=== PATIENT | female | born 1935 | race Caucasian/White ===

== ENCOUNTER 2017-02-08 13:19 | Emergency (ER) | payer OTHER, MEDICARE ==
[~2017-02-08] VITALS: Ht 160 cm; Wt 63.5 kg
[~2017-02-08 13:19] MED LIST: ALEVE220 M1 PO; AMITRIPTYLINE H10 M1 PO; AMLODIPINE BESYL5 MG PO; ATIVAN0.5 MG PO; AVAPRO300 MG PO; CLARITIN10 MG PO; COREG25 MG PO; CYMBALTA30 MG PO; GABAPENTIN 100100 MG PO; GYNODIOL0.5 MG PO; HYDROCODON-ACE1 EAC5 PO; HYDROCODON-ACE1 EAC7 PO; HYDROCODONE-AP1 EAC6 PO; LANSOPRAZOLE30 MG PO; LIDOCREAM5 GM TP; LIDODERM 5%1 PATC1 TOP; LOTEMAX3.5 GM OP; MICARDIS40 MG PO; MOBIC15 MG PO; NORCO 5-325 TA1 EACH; NORCO 5-325 TA1 EACH PO; OXYBUTYNIN 5 MG5 M2 PO; OXYCODONE-ACET1 EAC2 PO; OXYCONTIN10 M1 PO; OXYCONTIN10 MG PO; PEPCID20 MG PO; PRAVACHOL40 MG PO; PREMARIN0.3 MG PO; PREMARIN0.625 MG PO; RITALIN5 MG PO; SYNTHROID25 MCG PO; TRAMADOL 50 MG50 MG PO; ULTRAM 50MG TAB50 MG PO; VESICARE 5 MG TA5 MG PO; VITAMIN D-32000 UNIT PO; VOLTAREN GEL 1100 G2 TOP; ZIAC 10-6.25 M1 EACH; ZIAC 10/6.25 MG10 M1 PO; ZIAC 5-6.25 MG1 EACH PO
[2017-02-08] MEDS ORDERED: VITAMIN D1000 UNI1 PO (13:27)
[2017-02-08] MEDS ORDERED: LASIX 40 MG TAB40 M2 PO (13:28)
[2017-02-08] MEDS ORDERED: LIDODERM 5%1 PATC1 TRANSDERM (13:28)
[2017-02-08] MEDS ORDERED: METHYLPHENIDATE10 M1 PO (13:30)
[2017-02-08] MEDS ORDERED: NORVASC2.5 MG PO (13:31)
[2017-02-08] MEDS ORDERED: NORCO 10-325 T1 EACH PO ×2 (13:31→14:42)
[2017-02-08] MEDS ORDERED: KLOR-CON 1010 MEQ PO (13:34)
== END 2017-02-08 15:17 | disposition home or self-care (01) ==
LOC: ER 13:19
DX: M54.89 Other dorsalgia (principal); Z90.710 Acquired absence of both cervix and uterus; Z98.890 Other specified postprocedural states; Z98.62 Peripheral vascular angioplasty status; Z96.651 Presence of right artificial knee joint; Z88.0 Allergy status to penicillin; Z88.8 Allergy status to other drugs, medicaments and biological substances

== ENCOUNTER 2017-02-09 15:41 | Inpatient (IN) | payer OTHER, MEDICARE ==
[~2017-02-09] VITALS: Ht 160 cm; Wt 63.5 kg
--- NOTE | ~2017-02-09 | EKG ---
[place] [address] 2,10E+07[facility] [place] [address] ELECTROCARDIOGRAM REPORT Name: HODAN WHEATN Room #: 408-P ADM IN M.R.#: [id number] Admission: 02/09/17 Attend Phys: Wenceslao Aquino MD Discharge: Date of : 31 Report #: [id number] THIS REPORT FOR: //name// [facility] ED Test Date: 2017-02-09 Test Time: 19:02:16 Pat Name: RENITA WHEAT Department: Room: 408 Gender: F Php Engineer: [id number] : 1935 Requested By: Donnell Daniels Order Number: [id number] MD: Casimiro Vasquez Measurements Intervals [place] Rate: 64 P: 72 CA: 168 QRS: 23 QRSD: 142 T: 16 QT: 416 QTc: 430 Interpretive Statements Sinus rhythm Atrial premature complex Right bundle branch block No previous ECG available for comparison Electronically Signed On 02-10-2017 8:49:34 CDT by Casimiro Vasquez [email or web address] <ELECTRONICALLY SIGNED> By: Casimiro Vasquez MD, [facility] 02/10/17 0849 [id number] 01 Casimiro Vasquez MD, FACC /EPI
--- NOTE | ~2017-02-09 | HPC ---
[facility] [place] [address] PAIN MANAGEMENT CONSULTATION Name: RENITA WHEAT Room #: 408-P [facility] IN M.R.#: [id number] Admission: 02/09/17 Attend Phys: Wenceslao Aquino MD Discharge: Date of : 31 Report #: [id number] THIS REPORT FOR: //name// CC: Wenceslao Aquino CHIEF COMPLAINT: Pain in the neck and head after a fall. The patient states that she was putting up a clock. This is one that her had made. As she lifted it, a portion of it fell off. The clock struck her in the face. She fell and has been experiencing headache pain. She also has pain and discomfort along the left side. She has continued to have some headache pain today. She has hydrocodone as an option. She has not asked for this medication today. PHYSICAL EXAMINATION: She is lying in bed. She is holding her head. She complains of pain and discomfort in the occipital area and a generalized headache. MEDICATIONS: OxyContin 10 mg p.o. b.i.d., Coreg 25 mg b.i.d., Pepcid 20 mg b.i.d., oxybutynin 5 mg, tramadol 50 mg p.r.n. for headaches, multivitamins, Lasix 40 mg daily, amlodipine 2.5 mg daily, potassium 10 mEq, levothyroxine 25 mcg, Pravachol 40 mg, Voltaren gel topical t.i.d. IMPRESSION: Chronic headache, status post fall with trauma to the left facial area. RECOMMENDATIONS: We will have the patient given tramadol 15 mg 1 p.o. t.i.d. We will also start Celebrex 200 mg 1 p.o. every day, after termination of the tramadol. We will see her again tomorrow. We would like to thank you for letting us participate in her care. We hope she continues to improve. By: [id number] Maira Fonseca MD /nt
--- NOTE | ~2017-02-09 | H ---
[facility] [place] [address] HISTORY AND PHYSICAL Name: RENITA WHEAT Room #: 408-P ADM IN M.R.#: [id number] Admission: 02/09/17 Attend Phys: Wenceslao Aquino MD Discharge: Date of : 33 Report #: [id number] THIS REPORT FOR: //name// CC: Wenceslao Aquino DATE OF SERVICE: 02/09/2017 CHIEF COMPLAINT: Severe headaches and neck pain and hypertensive urgency. HISTORY OF PRESENT ILLNESS: Information was obtained from the medical record, two emergency room visits, the patient and the patient's daughter. According to the patient, she injured 10 days ago when relatively heavy wooden clock fell off the wall and hit her in the head. However, her neck pain did not begin until approximately 4 days ago. The patient's daughter states that she will fall asleep immediately upon sitting at anytime and anywhere. She reports that the patient sat on the edge of her bed and fell asleep sitting up and stayed asleep sitting up for 6 hours through the night. When she woke in the morning, her neck hurt and her upper shoulder muscles hurt severely. She put up with the pain at home for several days and at that time, the patient came and evaluated in the emergency room on 02/08/2017. On that visit, her neck is recorded is being supple and nontender. The back was negative except for tenderness to palpation of the left scapula. There is no tenderness over the cervical spine midline. They noticed ecchymosis of the left lateral portion of the hip. Her motor movements were all normal. X-ray of her chest and a CT scan of her head were unremarkable. The scapular x-ray was also negative. She was given an injection of fentanyl and her pain was relieved and she was discharged with the prescription of hydrocodone 10/325, fourteen tablets. She called our office the next day and an appointment was offered but declined. Later that evening, the afternoon of admission, she returned to the emergency room because of neck pain. The details of her history were varied substantially from the night before. Noted was a denial of neck stiffness and neck pain. On exam this time, there was tenderness over the middle cervical spine with left-sided paraspinal muscle tenderness. CT scan of the C-spine showed several degenerative subluxations that were actually improved or no worse when compared with the cervical spine series done earlier. Because of her continued pain, she was given fentanyl injection in the emergency room but her pain was not relieved. Her blood pressure was 217/83. It was decided because of failure for response to therapy at home and because of progressive physical findings of neck stiffness and inability to move her neck that acute inpatient hospitalization was indicated. Blood pressure needed to be controlled as well. Additional history is that of approximately 2 weeks ago. There was a heavy wooden clock that she was returning to its hook on the wall. She reports that the hook gave way and the clock fell striking her above the left eyebrow. On exam, there is a tiny laceration there. However, after the fall, she was knocked unconsciousness according to one version of the story and stayed lying [address] [address] HISTORY AND PHYSICAL Name: RENITA WHEAT Room #: 408-P ADM IN M.R.#: [id number] Admission: 02/09/17 Attend Phys: Wenceslao Aquino MD Discharge: Date of : 33 Report #: [id number] on the floor in the kitchen for 45 minutes before she regained consciousness. She is certain of the time elapsed because she knows what time the clock showed when the hung it on the wall and she was able to find the time from either the clock or a watch when she regained consciousness. She denies having any other problems from that fall specifically. There was no increase in her usual low back pain, no neck pain and no forehead pain or headaches. She did develop quite of bruise as the bleeding occurred under the skin and traveled down her face underneath the left eyebrow. There were also bruises on the lateral portion of the left hip and lateral portion the left chest wall. These other injuries matched the fall, a part of her story. Her daughters also noted that she has some baseline difficulty with immediate memory and past memory and cognition but that these have been worse since she spent a night sleeping sitting up on the bed and developed her neck pain and stiffness. PAST MEDICAL HISTORY: Significant for chronic lumbar spinal stenosis and has treated in the [facility] pain clinic by Dr. Crystal Fonseca. She has lumbar radiculopathy. She has been able to reduce her OxyContin 10 mg tablets to 2 in the morning and 1 in the latter part of the day and she finds this helpful. She also uses hydrocodone 10/325, two tablets every 8 hours as needed for pain with Dr. Fonseca prescribing 90 tablets for a 30-day supply. This dose has been unchanged for some period of time. On 04/12/2006, Dr. Sam replaced her right knee. She has hypertension, GERD, lumbar spinal stenosis, tonsillectomy/hysterectomy and angioplasty. She has depression and chronic pain syndrome. She has estrogen deficiency symptoms. She has depression and focus and energy problems. She has overactive bladder, GERD and hyperlipidemia. MEDICATIONS: Her medication list was reviewed with her in the hospital using the medication that she brought from home. She was unable to review the list accurately at the time of my evaluation of her. As best guess, her current medications before being admitted, not including the 14 hydrocodone tablets she received in the emergency room on February 08 are as follows: Vitamin D3 2000 units daily, carvedilol 25 mg one tablet twice daily, generic Cymbalta a total of 90 mg a day with one duloxetine 60 mg capsule in the morning and 30 mg capsule in the afternoon or evening. Estradiol 0.5 mg once daily. Levothyroxine 25 mcg daily. Lorazepam 0.5 mg up to 4 tablets daily that has taken on an as needed basis for anxiety and not taken very often. Oxybutynin 10 mg extended release one twice daily. Furosemide 40 mg is taken only as needed for edema and has not been needed. Lidoderm topical patch and Lidoderm topical cream are available as needed and [address] [address] HISTORY AND PHYSICAL Name: RENITA WHEAT Room #: 408-P [facility] IN .R.#: [id number] Admission: 02/09/17 Attend Phys: Wenceslao Aquino MD Discharge: Date of : 33 Report #: [id number] are not being used. She is not taking amlodipine 2.5 mg daily. She is taking Pepcid 20 mg twice daily, potassium chloride 10 mEq daily, pravastatin 40 mg once daily but is not using her Voltaren gel to her knees. Methylphenidate 10 mg two tablets daily is not being used since she has been having her pain recently. This helps with her depression and focus and energy. OxyContin 10 mg two in the morning and one in the evening combined with hydrocodone 10/325 two tablets up to three times a day, [address] Fonseca. Tramadol 50 mg one daily for headaches was prescribed last summer and she still has quite a few left. ALLERGIES: PENICILLINS, RESTASIS/CYCLOSPORINE. PENICILLIN caused her face to swell and problems with breathing. REVIEW OF SYSTEMS: Limited to the HPI and is noncontributory otherwise. FAMILY HISTORY: Negative for cervical spine problems. PHYSICAL EXAMINATION: GENERAL: Shows an 81-year-old female who is in mild amount of discomfort at the time of my evaluation after she had received fentanyl injection earlier in the day. HEENT: Unremarkable except for ecchymosis beginning at the lower portion of the left eyebrow traveling down around the left eye and down the cheek appearing to be approximately 10 days old by the fading and in the coloring of the bruising. Oropharynx is negative. PERRLA. EOMI. LUNGS: Clear. CARDIOVASCULAR: Heart tones are normal. The rhythm is regular. ABDOMEN: Soft and nontender, without gross organomegaly or masses. EXTREMITIES: There is no significant edema in the lower extremities. NEUROLOGICAL: Focal neurological examination is grossly intact. MUSCULOSKELETAL: Along the left side of the hip of the greater trochanter, there is an evolving bruise that fits the history of her fall about 10 days ago. There is also smaller bruise in the lower left lateral rib portion of the chest. The paraspinal posterior cervical muscles are very tight and tender and she has some markedly limited rotation and flexion and extension of her neck. LABORATORY DATA: Essentially unremarkable. White blood cell count was 10.9 thousand, hemoglobin was 12.4 and differential was unremarkable. A scapula film from is negative. The involved portions of the shoulder joint were normal without fracture. PA and lateral chest x-ray was also negative. Numerous osteophytes of the thoracic spine were unchanged from previous chest x-ray of 04/09/2006. Ectasia of the aorta was unchanged. CT scan of the head was compared with 04/19/2012 and showed mild atrophy with chronic mild microvascular changes that were unchanged from the study of 5 years ago[address] [address] HISTORY AND PHYSICAL Name: RENITA WHEAT Room #: 408-P ADM IN [facility].#: [id number] Admission: 02/09/17 Attend Phys: Wenceslao Aquino MD Discharge: Date of : 33 Report #: [id number] of the cervical spine was compared with spine films of 06/19/2015 with a 2 mm anterolisthesis of C4 on C5 that was unchanged. There was 2 mm anterolisthesis of C5 on C6 on the prior flexion views, which was only 1.5 mm on today's study. Degenerative cysts involving mid odontoid were noticed without fracture. ADMITTING DIAGNOSES: 1. Toxic encephalopathy, the patient's ability to give a precise history has been affected by her neck pain. 2. Severe cervical muscle spasms and tightness. 3. Mild degenerative cervical spine disease on the CT scan that is stable or perhaps improved from 2015. 4. Hypertensive urgency with blood pressures remaining in the 180s and 190s after she was admitted and given pain medication. 5. Significant anxiety. 6. Lumbar spinal stenosis and lumbar radiculopathy that is stable without an increase in her low back pain and radicular symptoms. 7. Hypertension. 8. Depression. 9. Chronic pain syndrome. 10. Hyperlipidemia. 11. Recent closed head injury to the left forehead. 12. From office chart, benign paroxysmal positional vertigo, has responded well to physical therapy sessions for repositionings of the . 13. Progressive overactive bladder encroaching on urine incontinence. 14. Depression and anxiety that have responded well to Cymbalta. 15. Lack of an allergy, depression and lack of focus that has responded well to low doses of methylphenidate. 16. Severe degenerative changes of the lumbar spine with spinal stenosis, referred to CT scan of 12/25/[address] Bernal, her neurosurgeon. 17. Unclear history of having had a transient ischemic attack/stroke in her past - specifics are not available at this time. 18. Osteoarthritis of the un-operated left knee. PLAN: The patient requires full admission. She is being given intravenous fentanyl that has given her relief as well as 1 mg of oral lorazepam to help with her anxiety. Her blood pressure remained elevated despite the fact that she did sleep from midnight to about 6:00 this morning without difficulty. Physical therapy, occupational therapy, MRI of the cervical spine and MRI of the brain will be ordered in an evaluation and treatment of her neck pain and muscle spasms, which is quite severe at this point in time. She has an appointment at the outpatient pain clinic for 12:45 on February 11 and that appointment time will be utilized. [address] [address] HISTORY AND PHYSICAL Name: RENITA WHEAT Room #: [facility] IN M.R.#: [id number] Admission: 02/09/17 Attend Phys: Wenceslao Aquino MD Discharge: Date of : 33 Report #: [id number] She wishes a complete resuscitation. Her toxic encephalopathy should clear as her pain and neck spasm are treated and improved. By: [id number] Wenceslao Aquino MD /nt
--- NOTE | ~2017-02-09 | HC ---
[facility] [place] [address] CONSULTATION Name: HODAN WHEATN Room #: 408-P [facility] IN M.R.#: [id number] Admission: 02/09/17 Attend Phys: Wenceslao Aquino MD Discharge: 02/12/17 Date of : 33 Report #: [id number] THIS REPORT FOR: //name// CC: Wenceslao Aquino DATE OF SERVICE: 02/11/2017 HISTORY OF PRESENT ILLNESS: The patient is an 81-year-old white female who was admitted to [facility] with severe headache and neck pain with a recent head injury. The patient also had hypertensive urgency. Approximately 10 days prior to admission, she had been putting a wooden clock up on the wall and apparently the nail dislodged and the clock fell off and hit her right in the face. She was knocked down and reports indicate she was unconscious and laid on the floor for approximately 45 minutes. She sustained significant ecchymosis to her forehead and periorbital area. She had the onset of severe neck pain and headache and was actually seen in the emergency department twice prior to being admitted. CT of the head itself was negative. MRI did not show any acute changes. She has significant cervical spine degenerative arthritis. There are some areas of moderate to severe neural foraminal stenosis. No discrete focal cord signal abnormality was identified. The patient has a diagnosis of a closed head injury and a toxic encephalopathy. She is now being seen in rehabilitation medicine consultation. PAST MEDICAL HISTORY: Includes chronic lumbar spinal stenosis, lumbar radiculopathy. She has a history of chronic pain syndrome and is followed with the pain clinic. She has had a prior right total knee replacement, history of depression, overactive bladder, GERD, hyperlipidemia, focus and energy problems, estrogen deficiency symptoms. MEDICATIONS: Please see her full medication listing. SOCIAL HISTORY: She lives in a house with her daughter who is noted to be disabled. The daughter is noted to be significantly obese and per the patient has been unable to hold down a job but is able to assist the patient with some of the home care duties, etc. The patient premorbidly utilized a cane when out in the community and on location will use it inside the house. There are 7 steps on the inside of the house for her to go up. ALLERGIES: PENICILLIN, RESTASIS, CYCLOSPORINE. FAMILY HISTORY: Negative for cervical spine problems. REVIEW OF SYSTEMS: Did not offer any current complaints of chest pain or shortness of breath or abdominal discomfort. She has neck pain, some headache which appears to be improving. [facility] [address] [place] [address] CONSULTATION Name: RENITA WHEAT Room #: [facility]#: [id number] Admission: 02/09/17 Attend Phys: Wenceslao Aquino MD Discharge: 02/12/17 Date of : 33 Report #: [id number] PHYSICAL EXAMINATION: GENERAL: She is a pleasant 81-year-old white female in no obvious distress. VITAL SIGNS: Last recorded temperature 97.8, pulse 64, respirations 16, blood pressure 121/57. NEUROLOGIC: She has significant facial ecchymoses. EOMs are full. No obvious visual field neglect to confrontation. Dentition is poor with some missing teeth. Facies appeared symmetric. She is able to answer basic 1 step commands without difficulty, some latency to her responses is noted. She has forward flexed cervical spine positioning with discomfort with attempted range of motion and has some evidence of thoracic kyphosis. Upper extremity range of motion, some decrease at end range with the shoulders with strength of grade 4- to 3+/5. Lower extremities, no focal calf swelling. Functional range of motion with strength of grade 4-/5. DTRs are decreased. Tone is intact. She is contact guard with sit to stand. She was able to ambulate 50 feet contact guard with the cane. ASSESSMENT: An 81-year-old white female with the following problem list: 1. Closed head injury with noted unconscious episode of approximately 45 minutes. 2. Toxic encephalopathy. 3. Significant neck and head pain. 4. Posterior cervical paraspinal muscular spasm. 5. Elevated blood pressure/initial hypertensive urgency. 6. Chronic low back pain with lumbar spinal stenosis. 7. Chronic pain syndrome. 8. Overactive bladder. 9. Depression and anxiety. 10. Unclear history of having a transient ischemic attack/stroke in the past. PLAN: We are assessing her regarding criteria for a potential acute in-hospital [address] [place] [address] rehab stay. We will be following with her therapies and we will be glad to give further input regarding whether she meets criteria for an acute in-hospital inpatient rehabilitation stay. Thank you for asking us to assist in this patient's care. <ELECTRONICALLY SIGNED> By: Alton Farr MD 02/16/17 1054 [id number] Alton Farr MD /nt
[~2017-02-09 15:41] MED LIST changes: +KLOR-CON 1010 MEQ PO; +LASIX 40 MG TAB40 M2 PO; +LIDODERM 5%1 PATC1 TRANSDERM; +METHYLPHENIDATE10 M1 PO; +NORCO 10-325 T1 EACH PO; +NORVASC2.5 MG PO; +VITAMIN D1000 UNI1 PO
[2017-02-09 15:48] VITALS: BP 198/82
[2017-02-09 19:50] VITALS: BP 194/78
[2017-02-09 20:35] VITALS: BP 194/83
[2017-02-10 00:33] VITALS: BP 179/62
[2017-02-10 04:10] VITALS: BP 186/67
[2017-02-10 06:36] LABS: ALBUMIN 3.2 g/dL (3.4-5.0); CALCIUM 9.1 mg/dL (8.5-10.1); CREATININE 0.8 mg/dL (0.6-1.0); POTASSIUM 3.9 mmol/L (3.5-5.1); TOTAL BILIRUBIN 0.6 mg/dL (<0.1-1.0); TOTAL PROTEIN 6.2 g/dL (6.4-8.2)
[2017-02-10 07:01] LABS: ABSOLUTE NEUTROPHILS 7.6 thou/uL (1.4-8.2); BASOPHILS 0.5 % (0.0-2.0); HEMATOCRIT 36.5 % (37.0-47.0); HEMOGLOBIN 12.4 gm/dL (12.0-15.0); LYMPHOCYTES 18.6 % (24.0-44.0); MCHC 33.9 g/dL (28.0-37.0); MCV 91.4 fL (80.0-100.0); MONOCYTES 11.6 % (1.0-8.0); PLATELET COUNT 221 thou/uL (150-400); POLYS 69.3 % (36.0-66.0); RDW 13.1 % (10.5-14.5); WBC 10.9 thou/uL (4.0-11.0)
[2017-02-10 07:03] LABS: MANUAL DIFF NO
[2017-02-10 08:00] VITALS: BP 196/76
[2017-02-10 16:00] VITALS: BP 118/65
[2017-02-10 21:00] VITALS: BP 112/55
[2017-02-11 04:35] VITALS: BP 129/57
[2017-02-11 10:18] VITALS: BP 121/57
[2017-02-11 15:40] VITALS: BP 136/49
[2017-02-11 20:24] VITALS: BP 167/71
[2017-02-12 04:16] VITALS: BP 141/50
[2017-02-12 08:50] VITALS: BP 163/53
[2017-02-12] MEDS ORDERED: SKELAXIN 800 M800 MG PO (14:27)
[2017-02-12] MEDS ORDERED: CELEBREX 200 M200 M1 PO (14:28)
[2017-02-12] MEDS ORDERED: KETOROLAC IV PUSH (14:29)
[2017-02-12] MEDS ORDERED: OXYCONTIN10 M1 PO (14:29)
[2017-02-12] MEDS ORDERED: OXYCONTIN20 M1 PO (14:30)
[2017-02-12] MEDS ORDERED: ATIVAN0.5 MG PO (14:31)
[2017-02-12] MEDS ORDERED: CYMBALTA60 MG PO (14:31)
[2017-02-12] MEDS ORDERED: CYMBALTA30 MG PO (14:31)
[2017-02-12] MEDS ORDERED: LIDODERM 5%1 PATC1 TRANSDERM (14:32)
[2017-02-12] MEDS ORDERED: OXYBUTYNIN 5 MG5 M1 PO (14:33)
[2017-02-12] MEDS ORDERED: COZAAR 50 MG TA50 M1 PO (14:37)
== END 2017-02-12 15:29 | DRG 88 ==
LOC: ER 15:41 → 4N 19:27 → EROBS 19:27 → 4N 20:06
PROVIDERS: Internal Medicine
DX: S06.0X9A Concussion with loss of consciousness of unspecified duration, initial encounter (principal); G92 Toxic encephalopathy; S16.1XXA Strain of muscle, fascia and tendon at neck level, initial encounter; I16.0 Hypertensive urgency; I10 Essential (primary) hypertension; Z96.651 Presence of right artificial knee joint; F32.9 Major depressive disorder, single episode, unspecified; K21.9 Gastro-esophageal reflux disease without esophagitis; E78.5 Hyperlipidemia, unspecified; M48.06 Spinal stenosis, lumbar region; G89.4 Chronic pain syndrome; N32.81 Overactive bladder; F41.9 Anxiety disorder, unspecified; Z86.73 Personal history of transient ischemic attack (TIA), and cerebral infarction without residual deficits; M54.16 Radiculopathy, lumbar region; H81.10 Benign paroxysmal vertigo, unspecified ear; M17.12 Unilateral primary osteoarthritis, left knee; X58.XXXA Exposure to other specified factors, initial encounter; M50.30 Other cervical disc degeneration, unspecified cervical region; Y93.89 Activity, other specified; Y92.89 Other specified places as the place of occurrence of the external cause; Y99.8 Other external cause status; Z90.710 Acquired absence of both cervix and uterus; Z88.0 Allergy status to penicillin; Z88.1 Allergy status to other antibiotic agents
CPT/HCPCS: 10091

== ENCOUNTER 2017-02-12 15:15 | Inpatient (IN) | payer OTHER, MEDICARE ==
[~2017-02-12] VITALS: Ht 160 cm; Wt 63.5 kg
--- NOTE | ~2017-02-12 | H ---
[facility] [place] [address] HISTORY AND PHYSICAL Name: RENITA WHEAT Room #: 509-P ADM IN M.R.#: [id number] Admission: 02/12/17 Attend Phys: Alton Farr MD Discharge: Date of : 33 Report #: [id number] THIS REPORT FOR: //name// CC: Alton Aquino DATE OF SERVICE: 02/12/2017 HISTORY AND PHYSICAL/POSTADMISSION PHYSICIAN EVALUATION: HISTORY OF PRESENT ILLNESS: The patient is an 81-year-old white female originally admitted to [facility] with severe headache and neck pain with a recent head injury. She also had hypertensive urgency. Approximately 10 days prior to admission, she had been putting a wooden clock upon the wall and apparently, the nail dislodged and the clock fell off and hit her right in the face. She was knock down and reports indicated. She was unconscious and laid on the floor for approximately 45 minutes. She sustained significant ecchymosis to her maximally area. She had the onset of severe neck pain and headache and was seen in the Emergency Department twice prior to being admitted. CT of the head itself was negative and MRI did not show any acute changes. She was noted to have significant cervical spine degenerative arthritis and there are areas of moderate to severe neural foraminal stenosis. No discrete vocal cord sigmoid abnormality was done, identified. She was diagnosed with a closed head injury, toxic encephalopathy, posterior cervical paraspinal muscular spasm, significant cervical spine degenerative arthritis. She does have some cervical spinal stenosis. She has been admitted now for acute in-hospital inpatient rehabilitation. PAST MEDICAL HISTORY: Includes chronic lumbar spinal stenosis, lumbar radiculopathy, history of chronic pain syndrome followed by the pain clinic, prior right total knee replacement, history of depression, overactive bladder, GERD, hyperlipidemia, estrogen deficiency problems. MEDICATIONS: Please see the full medication listing. Her medications were reconciled include any supplementation, Vitamin etc. each individually by myself during her acute in-hospital inpatient rehabilitation orders SOCIAL HISTORY: Lives in a house with her daughter who was noted to be disabled. The daughter has noted to be significantly obese and per the patient has not been employed, but can assist some with homecare duties etc. The patient premorbidly utilized a cane when out in the community and will on location uses in a house. There are 7 steps on the inside of the house for her to go up. ALLERGIES: PENICILLIN, RESTASIS CYCLOSPORIN. [facility] [address] [place] [address] HISTORY AND PHYSICAL Name: RENITA WHEAT Room #: 509-P [facility] IN M.R.#: [id number] Admission: 02/12/17 Attend Phys: Alton Farr MD Discharge: Date of : 33 Report #: [id number] FAMILY HISTORY: Negative for cervical spine problems. REVIEW OF SYSTEMS: She notes that the neck pain is a little better. No current complaints of chest pain, shortness of breath or abdominal discomfort. Some headache which appears to be improving. PHYSICAL EXAMINATION: GENERAL: An 81-year-old white female in no obvious distress. VITAL SIGNS: Last recorded temperature 97.4, pulse 62, respirations 18, and blood pressure 179/68. HEENT: The patient is alert. She is pleasant. She does have facial ecchymoses over her left maximally area. She is able to follow basic 1 step commands, although there was some latency to her responses. EOMs are full. No obvious visual field neglected comfortation. Dentition is poor with some teeth. Facies appeared symmetric. She has a forward flex cervical spine positioning with discomfort with attempted range of motion and some evidence of thoracic kyphosis. CHEST: Sounded clear to auscultation. CARDIOVASCULAR: Regular rate and rhythm. ABDOMEN: Bowel sounds positive, nontender. GENITOURINARY AND RECTAL: Deferred. EXTREMITIES: Upper extremity range of motion and some decreased end range with the shoulders with strength grade 4- to 3+/5. Lower extremities, no focal calf swelling. Functional range of motion with strength grade 4-/5. DTRs are decreased. Tone is intact. She is ambulating a short distance with contact guard with a cane. ASSESSMENT: An 81-year-old white female with the following problem list: 1. Closed head injury noted unconscious episode of approximately 45 minutes. 2. Toxic encephalopathy. 3. Significant neck and head pain. 4. Posterior cervical paraspinal muscular spasm. 5. Cervical degenerative arthritis with spinal stenosis. 6. Initial elevated blood pressure and hypertensive urgency. 7. Chronic low back pain with lumbar spinal stenosis. 8. Chronic pain syndrome. 9. Overactive Bladder. 10. Depression and anxiety. 11. Unclear history of having a transient ischemic attack/stroke in the past. PLAN: The patient is admitted for acute in-hospital inpatient rehabilitation. From a postadmission physician evaluation perspective, there are no relevant changes since the preadmission screening. Please see the above review of prior and current medical and functional conditions and comorbidities. Please see the patient's prior and current functional status. As far as risk of complications, the patient has the multiple medical comorbidities. The initial plan of care [address] [address] HISTORY AND PHYSICAL Name: RENITA WHEAT Room #: 509-P [facility] IN .Sera.#: [id number] Admission: 02/12/17 Attend Phys: Alton Farr MD Discharge: Date of : 33 Report #: [id number] involves the interdisciplinary acute inpatient rehabilitation program with the goal of maximizing with the patient's functional independence so that she can hopefully return back to her prior living situation. Prognosis is reasonably good with estimated length of stay hopefully fairly short may be 5-10 days pending progress. Discharge will in part depend upon how she does in therapies. The patient will be involved with physical therapy, occupational therapy and speech therapy to work on maximizing functional independence with mobility and ADLs as well as overall cognition post-head injury. The patient meets diagnostic criteria for an acute in-hospital inpatient rehabilitation stay. She meets medical necessity criteria. She does have the appropriate tolerance for therapies and has appropriate discharge goals back to the home setting. <ELECTRONICALLY SIGNED> By: Alton Farr MD 02/16/17 1054 [id number] Alton Farr MD /nt
--- NOTE | ~2017-02-12 | HC ---
[facility] [place] [address] [place] [address] CONSULTATION Name: RENITA WHEAT Room #: 509-P [facility] IN M.R.#: [id number] Admission: 02/12/17 Attend Phys: Alton Farr MD Discharge: 02/17/17 Date of : 33 Report #: [id number] THIS REPORT FOR: //name// CC: Alton Aquino DATE OF SERVICE: 02/16/2017 ATTENDING PHYSICIAN: Alton Farr M.D. PANTOGRAPH OPERATOR: Raymundo Pratt, PhD. CLINICAL PRESENTATION: The patient is an 81-year-old female admitted to the rehabilitation unit at [facility] for a comprehensive inpatient rehabilitation program. She is experiencing deficits in mobility, self self-care and mental status secondary to a traumatic brain injury. The patient described herself as putting up a clock when it fell and struck her in the face. She has amnesia surrounding the event but remembers awakening on the floor and then going back to bed. The patient has an uncertain recall of events regarding her return to the hospital for treatment. Her previous diagnoses include chronic lumbar spinal stenosis, lumbar radiculopathy, history of chronic pain syndrome, prior right total knee replacement, history of depression, overactive bladder, GERD, hyperlipidemia, and estrogen deficiency. Her diagnoses on admission to rehab includes a closed head injury with an unconscious episode for approximately 45 units, toxic encephalopathy, significant neck and head pain, posterior cervical paraspinal muscular spasm, cervical degenerative arthritis with spinal stenosis, elevated blood depression and hypertension emergency, chronic low back pain, chronic pain syndrome, overactive bladder, depression, anxiety, and an unclear history of transient ischemic attack or stroke. Neuropsychological consultation was requested to provide assistance in the assessment of cognitive and emotional status and to provide recommendations and services. Prior to this most recent admission, the patient reports living independently in her own home. She has 2 children. One child lives with her and is reported as obese to the extent of disability. Another daughter lives within the [place] area. The patient is a high school graduate. She was employed by [employer] prior to her chcf. There is no reported history of alcohol or drug abuse. The patient has been utilizing antidepressant medication. TECHNIQUES UTILIZED: Clinical interview, review of medical records, staff consultation and behavioral observation, mini mental status exam 2 standard version, clock drawing and category fluency assessment. [address] [address] CONSULTATION Name: RENITA WHEAT Room #: 509-P [facility] IN M.R.#: [id number] Admission: 02/12/17 Attend Phys: Alton Farr MD Discharge: 02/17/17 Date of : 33 Report #: [id number] EXAMINATION FINDINGS: The patient was alert and cooperative with the assessment. However, she was irritable and required encouragement to complete the evaluation. Her mood appears despondent. She does not report difficulty with memory, word finding, or attention and concentration. She states her sleep is not good while in the hospital. Appetite is within normal limits. She acknowledges subjective feelings of anxiety and depression, although does not report it as significantly affecting her level of functioning. Performance on the MMSE 2 brief version is within normal limits with a raw score of 14/16 and a T score of 45. The patient was 3/3 for initial registration, 5/5 for orientation to time and 3/[address]. She was 3/3 for immediate recall of 3 items after a brief time delay and distraction. Her performance deteriorated on the standard version of the MMSE 2 due to a raw score 23/30. The patient was 0/5 for serial 7's. Naming, repetition, auditory comprehension and ability to follow single written command were within normal limits. She could write a sentence and accurately copy a simple geometric design. Her score was 23 of 30, which is a T score of 36 and significant for mild deficit and neurocognitive status. Category fluency was within normal limits with a raw score 14 and a T score of 47. Clock drawing was within normal limits. DIAGNOSTIC IMPRESSION: 1. Mild neurocognitive disorder, unspecified, with increased irritability. 2. Unspecified anxiety disorder with depression. 3. Chronic pain disorder by history. RECOMMENDATIONS: The patient is presenting with decreased attention and sustained concentration. Variability in cognition is likely as a result of both pain, sedating medications and recovery from a mild traumatic brain injury. She will require increased assistance upon her return home for management of medications and nutrition. The patient indicates that she was driving and plans to return to driving. However, her driving should be further assessed. Verbal praise and complements about participation in therapies will lessen anxiety. The use of relaxation techniques may also be of benefit to assist management of anxiety. Thank you very much for allowing me to provide the consultation on this patient. <ELECTRONICALLY SIGNED> By: Raymundo Pratt, PhD 02/21/17 1457 [id number] [id number] Raymundo Pratt, PhD /nt
--- NOTE | ~2017-02-12 | PLAN ---
[facility] [place] [address] [place] [address] REHAB UNIT PLAN OF CARE Name: RENITA WHEAT Room #: 509-P ADM IN M.R.#: [id number] Admission: 02/12/17 Attend Phys: Alton Farr MD Discharge: Date of : 33 Report #: [id number] THIS REPORT FOR: //name// CC: Alton Aquino DATE OF SERVICE: 02/14/2017 The patient was seen earlier. Last recorded temperature 36.5, pulse 74, respirations 18 and blood pressure 172/67. She has some ongoing pain in the head and neck around a grade 3-5. She has been utilizing the cane with assistance to get back and forth to the bathroom with nursing. In physical therapy, she transfers with min assist and is ambulating 150 feet, contact guard with a standard cane. Lower body dressing is standby assistance, upper body is min assist. She does have mild comprehensive deficits noted in speech therapy. ASSESSMENT: 1. Closed head injury with noted unconscious episode of approximately 45 minutes. 2. Toxic encephalopathy. 3. Neck and head pain which are being monitored. 4. Posterior cervical paraspinal muscle spasm. 5. Cervical degenerative arthritis with spinal stenosis. 6. Initial elevated blood pressure and hypertensive urgency. 7. Chronic low back pain with lumbar spinal stenosis. 8. Chronic pain syndrome. 9. Overactive bladder. 10. Depression and anxiety. PLAN: The overall plan of care is based on the preadmission screen, post-admission physician evaluation and information garnered from therapy assessments. 1. Estimated length of stay is probably 5-10 days, potentially more as needed depending upon how she progresses. 2. Medical prognosis is reasonably good. 3. Anticipated interventions includes the interdisciplinary acute inpatient rehabilitation program with PT, OT and speech; rehabilitation nursing assisting regarding medication management, skin care prophylaxis, bowel and bladder issues and nursing education. Case management is involved as well as the inside sales consultant physicians. 4. Anticipated functional outcomes would be for the patient to ideally be modified independent at least at the walker level and to further improve as far as her ADLs and her cognition, so that she can return back to her prior living situation. 5. Discharge destination would be back to the house with her daughter. 6. Expected therapy by discipline includes PT, OT and speech, 1 hour per day, [place] [address] REHAB UNIT PLAN OF CARE Name: HODAN WHEATN Room #: 509-P [facility] IN [facility].#: [id number] Admission: 02/12/17 Attend Phys: Alton Farr MD Discharge: Date of : 33 Report #: [id number] each 5 days a week throughout the duration of the acute inpatient rehabilitation stay. <ELECTRONICALLY SIGNED> By: Alton Farr MD 02/16/17 1054 [id number] 1717 Alton Farr MD /nt
[~2017-02-12 15:15] MED LIST changes: +CELEBREX 200 M200 M1 PO; +COZAAR 50 MG TA50 M1 PO; +CYMBALTA60 MG PO; +KETOROLAC IV PUSH; +OXYBUTYNIN 5 MG5 M1 PO; +OXYCONTIN20 M1 PO; +SKELAXIN 800 M800 MG PO
[2017-02-12 16:00] VITALS: BP 94/44
[2017-02-13 05:04] VITALS: BP 179/68
[2017-02-13 06:25] LABS: HEMATOCRIT 35.1 % (37.0-47.0); HEMOGLOBIN 11.8 gm/dL (12.0-15.0); MCH 30.8 pg (26.0-34.0); MCHC 33.7 g/dL (28.0-37.0); MCV 91.5 fL (80.0-100.0); RBC 3.84 mil/uL (4.20-5.00); RDW 12.8 % (10.5-14.5); WBC 5.9 thou/uL (4.0-11.0)
[2017-02-13 06:36] LABS: CALCIUM 9.5 mg/dL (8.5-10.1); CREATININE 1.4 mg/dL (0.6-1.0); POTASSIUM 4.2 mmol/L (3.5-5.1)
[2017-02-13 15:40] VITALS: BP 150/54
[2017-02-14 03:58] VITALS: BP 179/69
[2017-02-14 16:22] VITALS: BP 131/44
[2017-02-15 05:04] VITALS: BP 176/53
[2017-02-15 06:03] LABS: HEMATOCRIT 33.2 % (37.0-47.0); HEMOGLOBIN 11.1 gm/dL (12.0-15.0); MCHC 33.4 g/dL (28.0-37.0); MCV 92.8 fL (80.0-100.0); RBC 3.58 mil/uL (4.20-5.00); RDW 13.1 % (10.5-14.5); WBC 5.8 thou/uL (4.0-11.0)
[2017-02-15 06:16] LABS: ALBUMIN 2.8 g/dL (3.4-5.0); CALCIUM 9.3 mg/dL (8.5-10.1); CREATININE 1.1 mg/dL (0.6-1.0); POTASSIUM 3.9 mmol/L (3.5-5.1); TOTAL BILIRUBIN 0.4 mg/dL (<0.1-1.0); TOTAL PROTEIN 6.2 g/dL (6.4-8.2)
[2017-02-15 15:23] VITALS: BP 134/50
[2017-02-16 05:42] VITALS: BP 170/66
[2017-02-16 15:05] VITALS: BP 128/53
[2017-02-17 03:20] VITALS: BP 140/51
[2017-02-17 05:55] VITALS: BP 154/50
[2017-02-17 10:27] VITALS: BP 155/62
[2017-02-17 13:10] VITALS: BP 139/54
[2017-02-17 15:27] VITALS: BP 155/62
[2017-02-17 15:30] VITALS: BP 155/62
[2017-02-17] MEDS ORDERED: NORCO 10-325 T1 EACH PO (15:43)
[2017-02-17] MEDS ORDERED: COLACE 100 MG100 MG PO (15:45)
== END 2017-02-17 17:00 | disposition home health service (06) | DRG 913 ==
PROVIDERS: Internal Medicine; Physical Medicine & Rehabilitation
DX: S09.90XA Unspecified injury of head, initial encounter (principal); G92 Toxic encephalopathy; M62.838 Other muscle spasm; I16.0 Hypertensive urgency; G89.29 Other chronic pain; M54.5 Low back pain; N32.81 Overactive bladder; F32.9 Major depressive disorder, single episode, unspecified; F41.9 Anxiety disorder, unspecified; G31.84 Mild cognitive impairment of uncertain or unknown etiology; K21.9 Gastro-esophageal reflux disease without esophagitis; Z96.651 Presence of right artificial knee joint; E78.5 Hyperlipidemia, unspecified; M48.02 Spinal stenosis, cervical region; M47.812 Spondylosis without myelopathy or radiculopathy, cervical region; I10 Essential (primary) hypertension; X58.XXXA Exposure to other specified factors, initial encounter; Y93.89 Activity, other specified; Y92.89 Other specified places as the place of occurrence of the external cause; Z88.0 Allergy status to penicillin; Z88.8 Allergy status to other drugs, medicaments and biological substances; Y99.8 Other external cause status
CPT/HCPCS: 10112

== ENCOUNTER → 2017-04-01 | Outpatient (CLI) | payer OTHER, MEDICARE ==
[~2017-04-01] VITALS: Ht 160 cm; Wt 65.3 kg
[~2017-04-01] MED LIST changes: +COLACE 100 MG100 MG PO
--- NOTE | ~2017-04-01 | HPC ---
[facility] [address] [place] [address] PAIN MANAGEMENT CONSULTATION Name: RENITA WHEAT Room #: REG NORA Christian#: [id number] Admission: 04/01/17 Attend Phys: Maira Fonseca MD Discharge: Date of : 33 Report #: [id number] THIS REPORT FOR: //name// CC: Maira Aquino DATE OF SERVICE: 04/01/2017 CHIEF COMPLAINT: "I fell after the clock hit me." FOLLOWUP HISTORY: The patient is an 81-year-old female who has been followed in the pain clinic because of chronic pain involving the low back area. She has been hospitalized after a fall. She was placing a clock on the wall. It struck her on her face. She was hospitalized. Some of her medications have been changed. She is not sure which medications to take and has come to the pain clinic for evaluation. PHYSICAL EXAMINATION: The patient is alert, appears to be doing well. The lesion/discoloration on the left side of her face has improved. She did have an area which indicated trauma and ecchymosis on that side at the last visit; that has improved. She has a script for the tramadol. At this point, we will resume use of her past medications which include OxyContin 10 mg 1 p.o. b.i.d. and oxycodone 10 one p.o. t.i.d. IMPRESSION: 1. Chronic headaches, status post fall and trauma to the left facial area. 2. History of chronic low back pain with radiation down into the buttocks and legs. The patient continues to walk with use of her cane. RECOMMENDATION: A script for medication has been given. She will follow up in the future as needed. We would like to thank you for letting us participate in her care. We hope she continues to improve. She will call us if she has any concerns regarding her medications. By: 1305 [id number] Maira Fonseca MD /nt
[2017-04-01 11:00] VITALS: BP 116/64
== END ==
LOC: PAIN 07:23
DX: G89.29 Other chronic pain (principal); R58 Hemorrhage, not elsewhere classified; E11.9 Type 2 diabetes mellitus without complications

== ENCOUNTER → 2017-07-27 | Outpatient (CLI) | payer OTHER, MEDICARE | LOC: RAD 12:53 | DX: Z12.31 Encounter for screening mammogram for malignant neoplasm of breast (principal); M19.011 Primary osteoarthritis, right shoulder; M79.621 Pain in right upper arm ==

== ENCOUNTER → 2017-08-05 | Outpatient (CLI) | payer OTHER, MEDICARE ==
[~2017-08-05] VITALS: Ht 160 cm; Wt 66.7 kg
[~2017-08-05] MED LIST changes: +ESTRACE0.5 MG PO; +GENTEAL SEVERE10 GM OPHTHALMIC; +METAXALL800 MG PO; +METHYLPHENIDATE10 MG PO; +MYRBETRIQ50 MG PO; +PERCOCET 10-321 EACH PO; +SYSTANE BALANCE10 ML OPHTHALMIC; +TRAVATAN Z2.5 ML OPHTHALMIC; +VOLTAREN GEL 1100 G1 TOP
--- NOTE | ~2017-08-05 | HPC ---
[facility] [place] [address] PAIN MANAGEMENT CONSULTATION Name: RENITA WHEAT Room #: REG NORA GallardoMarisolSeraMarisol#: [id number] Admission: 08/05/17 Attend Phys: Maira Fonseca MD Discharge: Date of : 33 Report #: [id number] THIS REPORT FOR: //name// CC: Maira Aquino MD DATE OF SERVICE: 08/05/2017 FOLLOWUP COMPLAINT: Here for medication renewal. FOLLOWUP HISTORY: The patient is an 82-year-old female who has been followed in the Pain Clinic because of pain and discomfort. She recalls, she suffers from chronic low back pain. Epidural steroid injections have lost their efficacy. At this juncture, she continues to be treated with opioid medications. She finds that these medications are helpful. She does rate her pain at 3-4 at this juncture. She has some generalized pain and it feels like she "hurts all over." Pain is worse when she is bending, walking and can be quite problematic in the morning when she gets up and starts her activity. PHYSICAL EXAMINATION: Blood pressure 129/96, pulse 65, respiratory rate 16, room air saturation is 99%. Height 5 foot 3, weight 147 pounds, BMI is 26. IMPRESSION: 1. Chronic low back pain with radiation of pain down to her buttocks and legs. She continues to walk using her cane. 2. History of falls, status post trauma to her face in the past. She does use assistance with walking around. Has some vertigo/dizziness and has fallen in the last 3 months. We smoke with her regarding use of a bicycle helmet on those days when she feels like she is somewhat unstable. This could be helpful should she fall and hit her head at home. She will consider the option. We would like to thank you for letting us participate in her care. We hope she continues to improve. By: [id number] 0350 Maira Fonseca MD /FRANCISCA
[2017-08-05 11:38] VITALS: BP 129/96
== END | disposition home or self-care (01) ==
LOC: PAIN 06:50
DX: Z76.0 Encounter for issue of repeat prescription (principal); M54.16 Radiculopathy, lumbar region; G89.29 Other chronic pain; Z91.81 History of falling; Z79.891 Long term (current) use of opiate analgesic; Z88.0 Allergy status to penicillin; Z88.8 Allergy status to other drugs, medicaments and biological substances; Z79.899 Other long term (current) drug therapy

== ENCOUNTER → 2017-11-06 | Outpatient (CLI) | payer OTHER, MEDICARE ==
[~2017-11-06] VITALS: Ht 160 cm; Wt 64.5 kg
[~2017-11-06] MED LIST changes: +BUSPIRONE HCL5 MG PO; +DEPAKOTE 250MG250 M1 PO; +DITROPAN XL10 MG PO; +HYDROCHLOROTH12.5 M1 PO; +LEVOTHYROXINE25 MCG PO; +MOBIC7.5 MG PO; +NORVASC5 MG PO; +OXYCODONE HCL 55 MG PO; +PROTONIX40 M1 PO; +ROXICODONE5 M2 PO; +ROXICODONE5 MG PO; +TRAZODONE HCL50 MG PO
--- NOTE | ~2017-11-06 | HPC ---
[facility] [place] [address] PAIN MANAGEMENT CONSULTATION Name: RENITA WHEAT Room #: REG NORA Christian#: [id number] Admission: 11/06/17 Attend Phys: Maira Fonseca MD Discharge: Date of : 33 Report #: [id number] THIS REPORT FOR: //name// CC: Maira Aquino MD DATE OF SERVICE: 11/06/2017 FOLLOWUP COMPLAINT: Medications are working reasonably well, came in for renewal. FOLLOWUP HISTORY: The patient is an 82-year-old female who has been seen in the pain clinic in the past because of lumbar radiculopathy. She has returned today indicating that her pain has continued to be helped with her current medications. She has noticed worsening of her pain in the low back area with pain radiating down into her right hip involving her buttocks. She has undergone epidural steroid injection in the past and gleaned benefits from these. At this juncture, she feels that another epidural steroid injection could be helpful and would like to proceed. She has had no real change in her medications. She is not taking any blood thinning medications. ALLERGIES: PENICILLIN. CURRENT MEDICATIONS: Voltaren 100 mg topical gel applied four times daily, Hypromellose gel ophthalmic, propylene glycol eyedrops, Travatan Z 2.5 mL eyedrops, mirabegron 50 mg, methylphenidate 10 mg, Metaxall 800 mg 4 times daily, lorazepam 0.5 mg, Claritin 10 mg, Synthroid 25 mcg, esterase 0.5 mg tablet daily, Cymbalta 60 mg, vitamin D, Celebrex 200 mg, oxycodone 10/325 t.i.d., OxyContin 10 mg b.i.d., 2 tablets a.m., 1 tablet at bedtime; Colace 100 mg, Norvasc 2.5 mg, Coreg 25 mg, Pravachol 40 mg. PHYSICAL EXAMINATION: VITAL SIGNS: Blood pressure 103/86, pulse 70, respiratory rate 20, room air saturation 98%. Height 5 feet 3 inches, weight 142 pounds, BMI is 25. HEENT: The patient wears glasses, uses eyedrops. NECK: Supple. HEART: Regular rate. ABDOMEN: Nontender. EXTREMITIES: The patient is somewhat weak and used her arms to go to a standing position. Walks with a cane, seems a little unstable on her feet with an antalgic gait. Has pain in the low back with pain radiating down into her low back to her knees bilaterally. IMPRESSION: 1. History of chronic low back pain treated with opioid therapy with [address] [address] PAIN MANAGEMENT CONSULTATION Name: HODAN WHEATN Room #: REG [facility] Marium.#: [id number] Admission: 11/06/17 Attend Phys: Maira Fonseca MD Discharge: Date of : 33 Report #: [id number] complex medication management. 2. History of falls this past year. Has not fallen in the last 3 months. Reminded the patient of the benefits of wearing a bicycle helmet on those days if she feels somewhat unstable. Discussed the use of opioid medications and their risk for dependency as well as tolerance. The patient feels that her medications are working well. She does not feel they caused any untoward problems, they enable her to be more active, the level at which she would not be able to stay as functional. RECOMMENDATIONS: We discussed treatment with her. Risks and benefits of an epidural steroid injection were discussed. Possible complications of the procedure were again reviewed. They include but are not limited to infection, increased muscle soreness, headache, bleeding, muscle trauma and nerve damage. She is aware of the possible complications and elects to proceed. PROCEDURE NOTE: The patient was helped to the procedure room. Assistance was provided to have the patient get on the table and laid in a prone position. Her back was sterilely prepped with a Betadine solution. A fluoroscopic guidance technique using an anterior and posterior as well as lateral imaging was used. After appropriate placement at the L4-L5 interspace, a total of 80 mg Depo-Medrol, 40 mg triamcinolone and 4 mL of 1% lidocaine was injected. The patient noted that her legs were a little tingly. She was able to stand and walk to the recovery room area. She remained there for an appropriate amount of time. Her legs resumed normal function with half an hour. Able to stand with no deficits. She was then discharged home. She will call us if she has any problems with her medications. <ELECTRONICALLY SIGNED> By: Maira Fonseca MD 11/18/17 0837 0832 1317 Maira Fonseca MD /FRANCISCA
[2017-11-06 12:46] VITALS: BP 103/86
== END | disposition home or self-care (01) ==
LOC: PAIN 07:12
DX: M54.16 Radiculopathy, lumbar region (principal); G89.29 Other chronic pain; Z79.891 Long term (current) use of opiate analgesic; Z91.81 History of falling; Z88.0 Allergy status to penicillin; Z79.899 Other long term (current) drug therapy; Z88.8 Allergy status to other drugs, medicaments and biological substances

== ENCOUNTER → 2017-12-08 | Outpatient (CLI) | payer OTHER, MEDICARE | LOC: RAD 13:38 | DX: S42.031A Displaced fracture of lateral end of right clavicle, initial encounter for closed fracture (principal); X58.XXXA Exposure to other specified factors, initial encounter; Y93.89 Activity, other specified; Y92.89 Other specified places as the place of occurrence of the external cause; Y99.8 Other external cause status; M47.896 Other spondylosis, lumbar region; R07.89 Other chest pain; M41.85 Other forms of scoliosis, thoracolumbar region; Z87.81 Personal history of (healed) traumatic fracture ==

== ENCOUNTER → 2017-12-08 | Outpatient (CLI) | payer OTHER, MEDICARE | LOC: CAT 15:42 | DX: S09.90XA Unspecified injury of head, initial encounter (principal); S00.03XA Contusion of scalp, initial encounter; M47.892 Other spondylosis, cervical region; W19.XXXA Unspecified fall, initial encounter; Y93.89 Activity, other specified; Y92.89 Other specified places as the place of occurrence of the external cause; Y99.8 Other external cause status ==

== ENCOUNTER → 2018-04-21 | Outpatient (CLI) | payer OTHER, MEDICARE ==
[~2018-04-21] VITALS: Ht 160 cm; Wt 65.0 kg
[~2018-04-21] MED LIST changes: -ROXICODONE5 MG PO
--- NOTE | ~2018-04-21 | HPC ---
[facility] [place] [address] PAIN MANAGEMENT CONSULTATION Name: RENITA WHEAT Room #: REG NORA Christian#: [id number] Admission: 04/21/18 Attend Phys: Maira Fonseca MD Discharge: Date of : 33 Report #: [id number] THIS REPORT FOR: //name// CC: Maira Aquino MD DATE OF SERVICE: 04/21/2018 FOLLOWUP COMPLAINT: "I was in the hospital and they did some surgery on my head." FOLLOWUP HISTORY: The patient is an 82-year-old female who has been followed in the pain clinic. As you recall, she has a significant history of lumbar radiculopathy. She finds that use of opioid medications over the long-term have been beneficial. She finds that things are going reasonably well. She states that she was at the store. She was somewhat confused. She stated that she was feeling "funny." Her daughter took her to the hospital. She states that she was placed in the hospital. She underwent surgery the following day. She states that they cut the hair from the side of her head. She underwent some surgery in the area of her brain. She had a second operation as well. States that things have improved. Still not really sure exactly what happened. She is now in a new living arrangement. States that she has not been receiving her opioid medications on a regular basis. She would like to resume their use. Feels that her pain in her back continues to be problematic. It affects her ability to engage in activities of daily living. She feels that she is thinking clearly. ALLERGIES: No known drug allergies. CURRENT MEDICATIONS: Voltaren 100 mg topical gel q.i.d., buspirone 5 mg b.i.d., trazodone 50 mg at bedtime, Norvasc 5 mg, hydrochlorothiazide 12.5 mg, Ditropan XL 10 mg, Protonix 40 mg, Mobic 7.5 mg, Depakote 250 mg, ophthalmic gel 1/8 strip Genteal Severe, propylene glycol drops ophthalmic, Travatan ophthalmic drops at bedtime, methylphenidate ER 10 mg, ____ 800 mg q.i.d., Ativan 0.5 mg q. 6 hours p.r.n., Claritin 10 mg, Synthroid 25 mcg, esterase 0.5 mg, Cymbalta 30 mg, total of 90 mg daily, vitamin D, Coreg 25 mg b.i.d., pravastatin 40 mg. PAIN CLINIC ASSESSMENT: 1. 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 2. Height 5 feet and 3 inches, weight 143 pounds, BMI 25. 3. Vital signs: Blood pressure 116/70, pulse 84, respiratory rate 16, room air saturation 97%. 4. Pain intensity of 6/10. 5. Fall risk. The patient has not fallen in the last 3 months. She did remember bumping her head. She does walk with use of a walker. [address] [address] PAIN MANAGEMENT CONSULTATION Name: RENITA WHEAT Room #: REG CLI [id number] Admission: 04/21/18 Attend Phys: Maira Fonseca MD Discharge: Date of : 33 Report #: [id number] 6. Blood thinner. The patient is not on a blood thinning medication. 7. History of hypertension. The patient is being treated for hypertension. 8. Opioid therapy greater than 6 weeks. The patient is on an opioid contract with the pain clinic and gets her medication from one physician. 9. Risk assessment tool 1. Low for opioid use. 10. Functional assessment tool showing mild problems with activity of daily living secondary to pain. 11. Recreational drug use. The patient denies use of recreational drugs. 12. Tobacco. The patient has never smoked cigarettes. 13. Alcohol use. The patient denies use of alcoholic beverages. PHYSICAL EXAMINATION: GENERAL: The patient is a well-developed white female. She appears her stated age. She is somewhat slightly unstable on her feet. She walks with use of her walker. She is alert and oriented x 3. Affect is appropriate. HEENT: Normocephalic. The patient has some hair, which is growing back on the left parietal area. Extraocular eye muscles intact, nonicteric. Hearing is within normal limits. NECK: Without adenopathy or JVD. Good range of motion. HEART: Regular rate. ABDOMEN: Nontender. EXTREMITIES: Upper extremity muscle strength is judged to be 4+ in the left and right with symmetry and without complaint of sensory change. MUSCULOSKELETAL: Without evidence of significant scoliosis, kyphosis or lordosis. Lower muscle strength is judged to be 4+ for the lower muscles area. The patient uses her arms to go from a sitting to a standing position. Walks with use of her walker and slightly unstable, but stable gait. IMPRESSION: 1. History of chronic low back pain treated with opioid therapy. The patient has returned for medication. 2. Recent hospitalization with "brain surgery." 3. Gastroesophageal problems. 4. Dry eyes. 5. Hypothyroidism. 6. Hypertension. 7. Hypercholesterolemia. RECOMMENDATIONS: We discussed treatment options with the patient. At this juncture, we will resume her opioid medications. We would resume at half a dose. She was taking oxycodone 10 mg b.i.d. We will start her on 5 mg b.i.d. The patient was also taking OxyContin ____. She took 30 mg daily. We will try her on OxyContin 10 mg and notes its efficacy. The patient will return in a [facility] [address] [address] PAIN MANAGEMENT CONSULTATION Name: RENITA WHEAT Room #: REG CL Christian#: [id number] Admission: 04/21/18 Attend Phys: Maira Fonseca MD Discharge: Date of : 33 Report #: [id number] month. We will then reassess her standing. We would like to thank you for letting us participate in her care. We hope she continues to improve. By: [id number] Maira Fonseca MD /FRANCISCA
[2018-04-21 10:36] VITALS: BP 116/71
== END ==
LOC: PAIN 07:12
DX: I10 Essential (primary) hypertension (principal); M54.5 Low back pain; E03.9 Hypothyroidism, unspecified; E78.00 Pure hypercholesterolemia, unspecified; G89.29 Other chronic pain; H04.129 Dry eye syndrome of unspecified lacrimal gland; Z79.899 Other long term (current) drug therapy

== ENCOUNTER → 2018-05-14 | Outpatient (CLI) | payer OTHER, MEDICARE ==
[~2018-05-14] VITALS: Ht 160 cm; Wt 65.4 kg
[~2018-05-14] MED LIST changes: +ROXICODONE5 MG PO
--- NOTE | ~2018-05-14 | HPC ---
[facility] [place] [address] PAIN MANAGEMENT CONSULTATION Name: HODAN WHEATN Room #: REG [facility] Christian#: [id number] Admission: 05/14/18 Attend Phys: Maira Fonseca MD Discharge: Date of : 33 Report #: [id number] THIS REPORT FOR: //name// CC: Maira Aquino DATE OF SERVICE: 05/14/2018 FOLLOWUP COMPLAINT: "Still living in the nursing facility." FOLLOWUP HISTORY: The patient is an 82-year-old female who has been followed in the pain clinic for a number of years. She has lumbar radiculopathy. She finds that her medications using in opioid therapy over the years has been satisfactory. She was admitted into the hospital a couple of months ago. There was some confusion. She had surgery to evacuate what sounds like a subdural hematoma. She continues to improve. She is not yet able to go home and live on her own. She is in the living arrangement. She finds that this is somewhat boring and lacks stimulation. She feels her medications continued to be helpful. She is not having any problems with the medications. She is unable to take care of her pet dog. She is now living with her daughter. This causes her to be unhappy/sad. ALLERGIES: No known drug allergies. MEDICATIONS: Voltaren 100 mg topical gel q.i.d., buspirone 5 mg b.i.d., trazodone 50 mg at bedtime, Norvasc 5 mg, hydrochlorothiazide 12.5 mg, Ditropan XL 10 mg, Protonix 40 mg, Mobic 7.5 mg, Depakote 250 mg, ophthalmic gel 1/8 strip, Genteal Severe ophthalmic drops, Travatan ophthalmic drops at bedtime, methylphenidate 10 mg, Ativan 0.5 mg, Claritin 10 mg, Synthroid 25 mcg, Estrace 0.5 mg, Cymbalta 30 mg, total of 90 mg daily, vitamin D, Coreg 25 mg b.i.d., pravastatin 40 mg. PAIN CLINIC ASSESSMENT: 1. History of osteoarthritis with change in the low back area resulting in chronic pain. 2. Height 5 feet 3 inches, weight 144 pounds, BMI is 25. 3. Vital signs: Blood pressure 144/68, pulse 66, respiratory rate 20, room air saturation 100%. 4. Pain intensity 02/16. 5. Fall risk. The patient has not fallen in the last 3 months. Does use a walker to help stabilize herself when she gets around. 6. Blood thinner. The patient is not on a blood thinning medication. 7. History of hypertension. The patient is being treated for hypertension. 8. Opioid therapy greater than 6 weeks. The patient receives her medications from the pain clinic. 9. Risk assessment tool, low for use of opioid medications. [address] [address] PAIN MANAGEMENT CONSULTATION Name: RENITA WHEAT Room #: REG NORA Gonzales#: [id number] Admission: 05/14/18 Attend Phys: Maira Fonseca MD Discharge: Date of : 33 Report #: [id number] 10. Functional assessment tool in the past. 11. Recreational drugs. Denies use of recreational drugs. 12. Tobacco: The patient denies use of tobacco. 13. Alcohol: The patient denies frequent use of any alcoholic beverages. PHYSICAL EXAMINATION: GENERAL: The patient is a well-developed white female, appears her stated age. She is alert and oriented x 3. Walks with use of a walker. Affect is somewhat sad. The patient would like to go home, but must be seen by a neurologist before she can be discharged home. HEENT: Normocephalic, atraumatic. Extraocular eye muscles intact. Sclerae nonicteric. Hearing is within normal limits. The patient's hair has grown back from the last surgical procedure. NECK: Without adenopathy or JVD. Good range of motion. HEART: Regular rate. S1, S2. ABDOMEN: Nontender. EXTREMITIES: Upper muscle extremity judged to be 4/5 with symmetry. MUSCULOSKELETAL: Without significant scoliosis, kyphosis or lordosis. Muscle strength in the lower extremities judged to be 4+/5 for the lower muscle extremities. The patient uses her arms go from sitting to a standing position. Walks with her walker. Slight bit unstable gait. IMPRESSION: 1. Chronic low back pain treated with opioid therapy. The patient has returned for medications. 2. Recent hospitalization with "brain surgery probably subdural hematoma removal. 3. Gastroesophageal problems. 4. Eye drops. 5. Hypothyroidism. 6. Hypertension. 7. Hypercholesterolemia. RECOMMENDATIONS: We discussed treatment options with the patient. The patient is aware that she is taking less opioid than she was prior to the trauma. We explained to her that we would slowly increase her medication as she is able to tolerate it. At this juncture, we will continue with 5 mg b.i.d. of OxyContin and 10 mg b.i.d. of oxycodone. Her daughter is present. She agrees with the procedure. We will follow up with her in 2 months. We would like to thank you for letting us participate in her care. We hope she continues to improve. By: [id number] MD jennyfer Higgins
[2018-05-14 11:49] VITALS: BP 144/68
== END ==
LOC: PAIN 06:58
DX: M54.16 Radiculopathy, lumbar region (principal); M54.5 Low back pain; G89.29 Other chronic pain; I10 Essential (primary) hypertension; E78.00 Pure hypercholesterolemia, unspecified; E03.9 Hypothyroidism, unspecified; K21.9 Gastro-esophageal reflux disease without esophagitis; H04.129 Dry eye syndrome of unspecified lacrimal gland; Z79.891 Long term (current) use of opiate analgesic

== ENCOUNTER → 2020-09-04 | Outpatient (CLI) | payer OTHER, MEDICARE ==
[~2020-09-04] MED LIST changes: +CARVEDILOL12.5 MG PO; +DULOXETINE HCL30 MG PO; +NEURONTIN100 MG PO; +PROTONIX 20 MG20 MG PO; -PROTONIX40 M1 PO; +PROTONIX40 M2 PO; +SYNTHROID25 MC1 PO; +TYLENOL EXTRA500 MG PO; +VITAMIN D325 MC3 PO
== END ==
LOC: LAB 09:01
PROVIDERS: ATTEND Specialist
DX: Z01.812 Encounter for preprocedural laboratory examination (principal); Z20.828 Contact with and (suspected) exposure to other viral communicable diseases

== ENCOUNTER → 2020-09-05 | Outpatient (CLI) | payer OTHER, MEDICARE ==
[~2020-09-05] VITALS: Ht 154.9 cm; Wt 54.4 kg
--- NOTE | 2020-09-07 09:53 | P ---
[facility] [place] [address] PROCEDURE REPORT Name: RENITA WHEAT Room #: REG NORA Christian#: [id number] Admission: 09/05/20 Attend Phys: Darinel Shoemaker Discharge: Date of : 33 Report #: [id number] THIS REPORT FOR: cc: Wenceslao Aquino MD, Stanley P. MD McElhinney, Christian C. MD ~ CC: Darinel Aquino DATE OF SERVICE: 09/05/2020 PROCEDURE PERFORMED: Colonoscopy with biopsies. HISTORY OF PRESENT ILLNESS: The patient is an 85-year-old female who was seen by myself in the office on 05/08/2020 with chronic diarrhea. At that time, symptoms had begun approximately 2 months before. No recent history of new medications or antibiotics. She denied any blood in her stools. Her weight was down approximately 10 pounds at that time. She tried Imodium without much improvement. Also, has a family history of colon cancer in her mother. DESCRIPTION OF PROCEDURE: The risks and benefits of the procedure were explained to the patient, those risks including but not limited to bleeding, perforation and the risk of sedation. She understood these risks and gave informed consent. Sedation was given using propofol per anesthesia. Next, a digital rectal exam was initially performed, which was normal. Next, using a pediatric Olympus colonoscope, the scope was placed in the patient's anus and advanced under direct vision to the cecum. The overall prep was good. In the cecum, there was a 3 mm sessile polyp. This was removed with cold forceps, otherwise normal. The ileocecal valve was normal. The ascending colon was normal. In the transverse colon, three 3-4 mm sessile polyps were noted. These were all removed with cold forceps, otherwise normal. The descending colon was normal. A few scattered diverticula were noted in the sigmoid colon. Random colon biopsies were obtained today to rule out the possibility of microscopic colitis due to her history of chronic diarrhea. The rectal mucosa was normal. On retroflexion, no abnormalities were noted. The scope was then withdrawn and the procedure terminated. The patient tolerated the procedure well. IMPRESSION: 1. Small colonic polyps. 2. Sigmoid diverticulosis. 3. Otherwise, normal colonoscopy. RECOMMENDATIONS: Await biopsy results. If biopsies are positive for microscopic colitis, we will discuss options with the patient. If negative, consider a trial of Questran in the near future. [address] [address] PROCEDURE REPORT Name: RENITA WHEAT Room #: REG NORA Christian#: [id number] Admission: 09/05/20 Attend Phys: Darinel Shoemaker Discharge: Date of : 33 Report #: [id number] Thank you for allowing me to participate in her care. <ELECTRONICALLY SIGNED> By: Darinel Hernández MD 09/07/20 0953 [id number] 1716 Darinel Hernández MD /yuliana
--- NOTE | 2020-09-07 18:06 | PATH ---
[facility] [address] [address] PATHOLOGY RPT PROCEDURE Name: RENITA WHEAT Room #: REG Chauncey M.R.#: [id number] Admission: 09/05/20 Date of : 33 Discharge: Report #: [id number] Path Case #: [id number] [facility] Accession Number: [id number] . 01 Material submitted: . PART A: colon - TRANSVERSE COLON POLYP X3. Modifiers: transverse PART B: colon - RANDOM COLON BIOPSY R/O MICROSCOPIC COLITIS PART C: cecum - CECAL POLYP . 01 Clinical history: . CHANGE IN BOWEL HABITS, FAMILY HX COLON CANCER, CHRONIC DIARRHIA, WT LOSS, COLON POLYPS . 02 Diagnosis: A. Polyp x3, transverse colon, endoscopic biopsy: - One fragment showing tubular adenoma without high grade dysplasia. - Remainder of fragments showing hyperplastic changes and lymphoid aggregates without dysplasia. . B. Large intestinal mucosa, random colon rule out microscopic colitis, endoscopic biopsy: - Mild focal active colitis, see comment. - Negative for dysplasia or malignancy. - Negative for microscopic colitis. . C. Polyp, cecal polyp, endoscopic biopsy: - Inflamed hyperplastic polyp. - Negative for dysplasia. . (IUV:mml; 09/07/2020) QLM 09/07/2020 1326 Local . 02 Comment: B. Sections of the colonic mucosa designated "random colon" show focal cryptitis, and a moderately cellular lamina propria composed predominantly of lymphocytes and plasma cells and occasional eosinophils. Surface ulceration is not identified. There are no crypt abscesses, granulomas or viral inclusions. The process affects all the fragments with a similar intensity. Given the description, the differential diagnosis includes mild focal active colitis due to a self-limited etiology, infectious-type of etiology, diverticulitis, as well as medication or drug-induced colitis. Please correlate with clinical as well as endoscopic findings. . (IUV:mml; 09/07/2020) . 02 Electronically signed: . Johanny Dexter MD, [place] [address] PATHOLOGY RPT PROCEDURE Name: RENITA WHEAT Room #: REG [facility] Christian#: [id number] Admission: 09/05/20 Date of : 33 Discharge: Report #: [id number] Path Case #: [id number] [facility] [[email or web address]]- [id number] . 01 Gross description: . A. Received in formalin labeled "Wheat, Renita, transverse colon polyp x3" are multiple butler-brown soft tissue fragments measuring in aggregate 0.7 x 0.4 x 0.1 cm. The specimen is submitted entirely in A1. . B. Received in formalin labeled "Renita Wheat, random colon BX" are multiple butler-brown soft tissue fragments measuring in aggregate 2.0 x 0.6 x 0.1 cm. The specimen is submitted entirely in B1. . C. Received in formalin labeled "Renita Wheat, cecal polyp" are two butler-brown soft tissue fragments measuring in aggregate 0.4 x 0.4 x 0.1 cm. The specimen is submitted entirely in C1. ([facility]; 09/06/2020) [facility] 09/06/2020 1300 Local . 02 Pathologist provided ICD-10: D12.3, K52.9, K63.5 . 02 CPT . 748853, 404085, 972210 Specimen Comment: A courtesy copy of this report has been sent to [phone] Specimen Comment: Report sent to Performed at: [address] [facility], [place] [id number] MD Roger Rick MD Phone: [phone] Performed at: [address] [id number] MD Johanny Dexter MD Phone: [phone]
== END | disposition home or self-care (01) ==
LOC: GI 09:04
PROVIDERS: ATTEND Specialist
DX: K52.9 Noninfective gastroenteritis and colitis, unspecified (principal); D12.3 Benign neoplasm of transverse colon; K51.40 Inflammatory polyps of colon without complications; K57.30 Diverticulosis of large intestine without perforation or abscess without bleeding; R19.4 Change in bowel habit; R63.4 Abnormal weight loss; I10 Essential (primary) hypertension; F32.9 Major depressive disorder, single episode, unspecified; F41.9 Anxiety disorder, unspecified; Z80.0 Family history of malignant neoplasm of digestive organs; Z98.890 Other specified postprocedural states; Z79.899 Other long term (current) drug therapy; Z86.73 Personal history of transient ischemic attack (TIA), and cerebral infarction without residual deficits; Z90.710 Acquired absence of both cervix and uterus; Z96.651 Presence of right artificial knee joint
CPT/HCPCS: 62110; 62900